=== PATIENT | male | born 1950 | race Caucasian/White ===

== ENCOUNTER 2017-06-02 05:36 | Outpatient (CLI) | payer MEDICARE ==
[~2017-06-02] VITALS: Ht 180.3 cm; Wt 98.4 kg
[~2017-06-02 05:36] MED LIST: ALBU8.5H2 IH; HYDR-34 PO; LISI10TA PO
[2017-06-02] MEDS ORDERED: RT-ALBUINH IH (12:27)
[2017-06-02] MEDS ORDERED: OMEP20TA7 PO (12:27)
[2017-06-02] MEDS ORDERED: LISI10TA2 PO (12:27)
== END 2017-06-02 12:35 ==
LOC: PREOP 05:36
PROVIDERS: ATTEND Surgery
DX: Z01.818 Encounter for other preprocedural examination (principal); Z12.11 Encounter for screening for malignant neoplasm of colon

== ENCOUNTER 2017-06-09 07:15 | Day surgery (SDC) | payer MEDICARE ==
[~2017-06-09] VITALS: Ht 180.3 cm; Wt 98.4 kg
[~2017-06-09 07:15] MED LIST changes: +LISI10TA2 PO; +OMEP20TA7 PO; +RT-ALBUINH IH
[2017-06-09] MEDS ORDERED: MIDAZOLAM 2 MG/2 ML (VERSED) VIAL ONE (07:21)
[2017-06-09] MEDS ORDERED: PROPOFOL INJECTION 50 ML IV ONE (07:21)
[2017-06-09] MEDS ORDERED: NS IV 500 ML 500 ML ONE (07:28)
[2017-06-09] MEDS ORDERED: NS IV 500 ML 500 ML IV PRN (07:38)
[2017-06-09] MEDS ORDERED: NS IV 500 ML 500 ML IV SCH (07:45)
[2017-06-09] MEDS ORDERED: MIDAZOLAM 2 MG/2 ML (VERSED) VIAL IV PRN (07:45)
[2017-06-09] MEDS ORDERED: NALOXONE 0.4 MG/ML 1 ML (NARCAN) VIAL IV PRN (07:45)
[2017-06-09] MEDS ORDERED: fentaNYL INJECTION 100 MCG/2 ML AMP IV PRN (07:45)
[2017-06-09] MEDS ORDERED: HURRICAINE EXT TUBE (BENZOCAINE) XX PRN ×2 (07:45)
[2017-06-09] MEDS ORDERED: LIDOCAINE JELLY 2% (XYLOCAINE) 5 ML TUBE TOP PRN (07:45)
[2017-06-09] MEDS ORDERED: FLUMAZENIL (ROMAZICON) 0.1 MG/ML 5 ML VIAL IV PRN (07:45)
[2017-06-09 07:51] VITALS: BP 146/88
[2017-06-09] MEDS ORDERED: HURRICAINE EXT TUBE (BENZOCAINE) ONE (08:12)
[2017-06-09] MEDS ORDERED: proPOfol 200 MG/20 ML (DIPRIVAN) VIAL IV ONE (08:43)
--- NOTE | 2017-06-09 09:15 | Progress Note-Pre Operative ---
Pre-Operative Progress Note H&P Reviewed The H&P was reviewed, patient examined and no changes noted. Date Seen by Provider: Jun 09, 2017 Time Seen by Provider: 08:10 Date H&P Reviewed: Jun 09, 2017 Time H&P Reviewed: 08:10 Pre-Operative Diagnosis: gerd, family hx colon cancer, hx polyps JESSICA NICOLAS DO Jun 09, 2017 09:15
--- NOTE | 2017-06-09 09:19 | Progress Note-Post Operative ---
Post-Operative Progess Note Surgeon (s)/Paraprofessional Aide Teacher (s) Surgeon JESSICA NICOLAS DO Paraprofessional Aide Teacher: na Pre-Operative Diagnosis gerd, family hx colon cancer, hx polyps Post-Operative Diagnosis hiatal hernia, reflux esophagitis, sigmoid polyp, diverticulosis, internal hemorrhoids Procedure & Operative Findings Date of Procedure 06/09/17 Procedure Performed/Findings egd c biopsies, colonoscopy wiht hot bx polypectomy Anesthesia Type per icebox man Estimated Blood Loss Estimated blood loss (mL): none Specimens/Packing Specimens Removed antrum, ge, sigmoid polyp JESSICA NICOLAS DO Jun 09, 2017 09:19
[2017-06-09 09:30] VITALS: BP 126/79
[2017-06-09 10:00] VITALS: BP 128/86
--- NOTE | 2017-06-09 10:15 | Discharge Inst-Simple/Standard ---
Discharge Inst-Standard Patient Instructions/Follow Up Plan of Care/Instructions/FU: 2 weeks Yanelis Activity as Tolerated: Yes Discharge Diet: Regular Diet JESSICA NICOLAS DO Jun 09, 2017 10:15
[2017-06-09 10:20] VITALS: BP 128/86
--- NOTE | 2017-06-09 13:27 | OPERATIVE REPORT ---
DATE OF SERVICE: 06/09/2017 PREOPERATIVE DIAGNOSES: Gastroesophageal reflux disease, family history of colon cancer, history of polyps. POSTOPERATIVE DIAGNOSES: Hiatal hernia, reflux esophagitis, sigmoid polyp, diverticulosis, internal hemorrhoids. PROCEDURE: EGD with biopsy, colonoscopy with hot biopsy polypectomy. SURGEON: Jessica Hilario DO. ANESTHESIA: Per CORPORATE TRAVEL AGENT. ESTIMATED BLOOD LOSS: None. COMPLICATIONS: None. INDICATIONS: The patient is a 66-year-old male with family history of colon cancer and history of polyps. He also has gastroesophageal reflux disease. The patient understands risks and benefits of procedure and wished to proceed with the procedure. Consent was signed on the chart. DESCRIPTION OF PROCEDURE: The patient was taken to the endoscopy suite, placed in left lateral recumbent position. Timeout was performed. Scope was inserted in the mouth, down the esophagus, stomach and into the duodenum without difficulty. The duodenum had no polyps, masses or ulcerations. The scope was slowly retracted back into the stomach which was further insufflated. A biopsy of the antrum was obtained. There are some small gastric polyps within the stomach all with benign appearance. Scope was retroflexed noting a moderate sized hiatal hernia. Scope was then returned to its normal position, slowly withdrawn in the distal esophagus. Some evidence of some reflux esophagitis or possibly early Sarmiento's was present. Couple biopsies were obtained of this area. Scope was then slowly retracted back noting no other pathology to completely remove. Digital rectal exam was performed. There were no palpable polyps, masses or ulcerations. The scope was inserted in the rectum advanced all the way to the cecum with minimal difficulty. Prep was adequate. Scope was then slowly retracted back. There were no polyps, masses or ulcerations in the cecum, ascending, transverse and descending colon. Within the sigmoid colon, a small polyp was present, which hot biopsy polypectomy was performed. There was also a minimal amount of diverticulosis present. Scope was continued to be slowly retracted to the rectum where it was also retroflexed noting some internal hemorrhoids. Scope was returned to its normal position, slowly withdrawn until completely removed noting no other pathology. The patient tolerated the procedure well without any complications. He was taken to recovery room in stable condition. RECOMMENDATIONS: The patient will continue current medications. We will await biopsy results and discuss pathology. The patient will need repeat colonoscopy in 5 years. If he has any problems prior to that, he should be reevaluated at that time. We consider changing medications for reflux, but we will see how he is doing and biopsy results. Job ID: [id number] DocumentID: [id number] Dictated Date: 06/09/2017 09:19:10 Air Quality Manager Date: 06/09/2017 13:26:18 Dictated By: JESSICA HILARIO DO
== END 2017-06-09 10:20 | disposition home or self-care (01) ==
LOC: ENDO 07:15
PROVIDERS: ATTEND Surgery
DX: Z12.11 Encounter for screening for malignant neoplasm of colon (principal); D12.5 Benign neoplasm of sigmoid colon; K57.30 Diverticulosis of large intestine without perforation or abscess without bleeding; K64.8 Other hemorrhoids; K22.70 Barrett's esophagus without dysplasia; K21.0 Gastro-esophageal reflux disease with esophagitis; K44.9 Diaphragmatic hernia without obstruction or gangrene; Z80.0 Family history of malignant neoplasm of digestive organs; Z86.010 Personal history of colon polyps; I10 Essential (primary) hypertension; J45.909 Unspecified asthma, uncomplicated; Z79.899 Other long term (current) drug therapy
CPT/HCPCS: 88305

== ENCOUNTER 2018-08-02 10:30 | Outpatient (CLI) | payer MEDICARE ==
[~2018-08-02] VITALS: Ht 180.3 cm; Wt 98.4 kg
== END 2018-08-02 11:00 | disposition home or self-care (01) ==
LOC: PREOP 10:30
PROVIDERS: ATTEND Surgery
DX: Z01.818 Encounter for other preprocedural examination (principal)

== ENCOUNTER 2018-08-03 06:59 | Day surgery (SDC) | payer MEDICARE, OTHER ==
[~2018-08-03] VITALS: Ht 180.3 cm; Wt 98.4 kg
[~2018-08-03 06:59] MED LIST changes: +LACTATED RINGERS 1,000 ML IV ONE
--- OUTSIDE RECORDS SUMMARY | 2018-08-03 07:02 | XMS REPORT | Continuity of Care Document ---
Author Organization Unknown Address Unknown Allergies Active Description Code Type Severity Reaction Onset Reported/Identified Relationship to Patient Clinical Status Yes No Known Drug Allergies [id number] Drug Allergy Unknown N/A 06/03/2010 Yes Penicillins [id number] Drug Allergy Unknown ANAPHYLAXIS 06/02/2017 Medications There is no data. Problems Date Dx Coded Attending Type Code Diagnosis Diagnosed By 06/02/2017 JESSICA NICOLAS DO Ot Z01.818 ENCOUNTER FOR OTHER PREPROCEDURAL EXAMIN 06/02/2017 JESSICA NICOLAS DO Ot Z12.11 ENCOUNTER FOR SCREENING FOR MALIGNANT NE 06/03/2017 JESSICA NICOLAS DO Ot Z01.818 ENCOUNTER FOR OTHER PREPROCEDURAL EXAMIN 06/03/2017 JESSICA NICOLAS DO Ot Z12.11 ENCOUNTER FOR SCREENING FOR MALIGNANT NE 06/09/2017 JESSICA NICOLAS DO Ot D12.5 BENIGN NEOPLASM OF SIGMOID COLON 06/09/2017 JESSICA NICOLAS DO Ot I10 ESSENTIAL (PRIMARY) HYPERTENSION 06/09/2017 JESSICA NICOLAS DO Ot J45.909 UNSPECIFIED ASTHMA, UNCOMPLICATED 06/09/2017 JESSICA NICOLAS DO Ot K21.0 GASTRO-ESOPHAGEAL REFLUX DISEASE WITH ES 06/09/2017 JESSICA NICOLAS DO Ot 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 06/09/2017 JESSICA NICOLAS DO Ot K44.9 DIAPHRAGMATIC HERNIA WITHOUT OBSTRUCTION 06/09/2017 JESSICA NICOLAS DO Ot K57.30 DVRTCLOS OF LG 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 06/09/2017 JESSICA NICOLAS DO Ot K63.5 POLYP OF COLON 06/09/2017 JESSICA NICOLAS DO Ot K64.8 OTHER HEMORRHOIDS 06/09/2017 JESSICA NICOLAS DO Ot Z12.11 ENCOUNTER FOR SCREENING FOR MALIGNANT NE 06/09/2017 JESSICA NICOLAS DO Ot Z79.899 OTHER INTERMEDIATE (CURRENT) DRUG THERAPY 06/09/2017 JESSICA NICOLAS DO Ot Z80.0 FAMILY HISTORY OF MALIGNANT NEOPLASM OF 06/09/2017 JESSICA NICOLAS DO Ot Z86.010 PERSONAL HISTORY OF COLONIC POLYPS 06/12/2017 JESSICA NICOLAS DO Ot D12.5 BENIGN NEOPLASM OF SIGMOID COLON 06/12/2017 JESSICA NICOLAS DO Ot I10 ESSENTIAL (PRIMARY) HYPERTENSION 06/12/2017 JESSICA NICOLAS DO Ot J45.909 UNSPECIFIED ASTHMA, UNCOMPLICATED 06/12/2017 JESSICA NICOLAS DO Ot K21.0 GASTRO-ESOPHAGEAL REFLUX DISEASE WITH ES 06/12/2017 JESSICA NICOLAS DO Ot 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 06/12/2017 JESSICA NICOLAS DO Ot K44.9 DIAPHRAGMATIC HERNIA WITHOUT OBSTRUCTION 06/12/2017 JESSICA NICOLAS DO Ot K57.30 DVRTCLOS OF LG 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 06/12/2017 JESSICA NICOLAS DO Ot K64.8 OTHER HEMORRHOIDS 06/12/2017 JESSICA NICOLAS DO Ot Z12.11 ENCOUNTER FOR SCREENING FOR MALIGNANT NE 06/12/2017 JESSICA NICOLAS DO Ot Z79.899 OTHER LINK TRAINER MAINTENANCE WORKER (CURRENT) DRUG THERAPY 06/12/2017 JESSICA NICOLAS DO Ot Z80.0 FAMILY HISTORY OF MALIGNANT NEOPLASM OF 06/12/2017 JESSICA NICOLAS DO Ot Z86.010 PERSONAL HISTORY OF COLONIC POLYPS 06/19/2017 JESSICA NICOLAS DO Ot D12.5 BENIGN NEOPLASM OF SIGMOID COLON 06/19/2017 JESSICA NICOLAS DO Ot I10 ESSENTIAL (PRIMARY) HYPERTENSION 06/19/2017 JESSICA NICOLAS DO Ot J45.909 UNSPECIFIED ASTHMA, UNCOMPLICATED 06/19/2017 JESSICA NICOLAS DO Ot K21.0 GASTRO-ESOPHAGEAL REFLUX DISEASE WITH ES 06/19/2017 JESSICA NICOLAS DO Ot 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 06/19/2017 JESSICA NICOLAS DO Ot K44.9 DIAPHRAGMATIC HERNIA WITHOUT OBSTRUCTION 06/19/2017 JESSICA NICOLAS DO Ot K57.30 DVRTCLOS OF LG 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 06/19/2017 JESSICA NICOLAS DO Ot K64.8 OTHER HEMORRHOIDS 06/19/2017 JESSICA NICOLAS DO Ot Z12.11 ENCOUNTER FOR SCREENING FOR MALIGNANT NE 06/19/2017 JESSICA NICOLAS DO Ot Z79.899 OTHER INTERMEDIATE (CURRENT) DRUG THERAPY 06/19/2017 JESSICA NICOLAS DO Ot Z80.0 FAMILY HISTORY OF MALIGNANT NEOPLASM OF 06/19/2017 JESSICA NICOLAS DO Ot Z86.010 PERSONAL HISTORY OF COLONIC POLYPS 06/20/2017 JESSICA NICOLAS DO Ot D12.5 BENIGN NEOPLASM OF SIGMOID COLON 06/20/2017 JESSICA NICOLAS DO Ot I10 ESSENTIAL (PRIMARY) HYPERTENSION 06/20/2017 JESSICA NICOLAS DO Ot J45.909 UNSPECIFIED ASTHMA, UNCOMPLICATED 06/20/2017 JESSICA NICOLAS DO Ot K21.0 GASTRO-ESOPHAGEAL REFLUX DISEASE WITH ES 06/20/2017 JESSICA NICOLAS DO Ot 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 06/20/2017 JESSICA NICOLAS DO Ot K44.9 DIAPHRAGMATIC HERNIA WITHOUT OBSTRUCTION 06/20/2017 JESSICA NICOLAS DO Ot K57.30 DVRTCLOS OF LG 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 06/20/2017 JESSICA NICOLAS DO Ot K64.8 OTHER HEMORRHOIDS 06/20/2017 JESSICA NICOLAS DO Ot Z12.11 ENCOUNTER FOR SCREENING FOR MALIGNANT NE 06/20/2017 JESSICA NICOLAS DO Ot Z79.899 OTHER INTERMEDIATE (CURRENT) DRUG THERAPY 06/20/2017 JESSICA NICOLAS DO Ot Z80.0 FAMILY HISTORY OF MALIGNANT NEOPLASM OF 06/20/2017 JESSICA NICOLAS DO Ot Z86.010 PERSONAL HISTORY OF COLONIC POLYPS 07/28/2018 JESSICA NICOLAS DO Ot Z01.818 ENCOUNTER FOR OTHER PREPROCEDURAL EXAMIN 07/30/2018 JESSICA NICOLAS DO Ot Z01.818 ENCOUNTER FOR OTHER PREPROCEDURAL EXAMIN 08/02/2018 JESSICA NICOLAS DO Ot Z01.818 ENCOUNTER FOR OTHER PREPROCEDURAL EXAMIN Procedures There is no data. Results There is no data. Encounters ACCT No. Visit Date/Time Discharge Status Pt. Type Provider Facility Loc./Unit Complaint [id number] 06/09/2018 09:00:00 06/09/2018 23:59:59 CLS Outpatient [facility] [id number] 08/02/2018 10:30:00 08/02/2018 11:00:00 DIS Outpatient JESSICA NICOLAS DO [facility] PREOP COLONOSCOPY/EGD [id number] 06/09/2017 07:15:00 06/09/2017 10:20:00 DIS Outpatient JESSICA NICOLAS DO [facility] ENDO SCREENING [id number] 06/02/2017 05:36:00 06/02/2017 12:35:00 DIS Outpatient JESSICA NICOLAS DO [facility] PREOP COLONOSCOPY [id number] 08/03/2018 08:00:00 PEN Preadmit JESSICA NICOLAS DO [facility] ENDO HX COLON POLYPS/FAMILY HX COLON CA/HX MCINTOSH'S
[2018-08-03] MEDS ORDERED: PROPOFOL INJECTION 50 ML IV ONE ×2 (07:13→08:17)
[2018-08-03] MEDS ORDERED: MIDAZOLAM 2 MG/2 ML (VERSED) VIAL ONE (07:13)
[2018-08-03] MEDS ORDERED: LACTATED RINGERS 1,000 ML IV STA (07:37)
[2018-08-03] MEDS ORDERED: HURRICAINE EXT TUBE (BENZOCAINE) ONE (07:39)
[2018-08-03 07:42] VITALS: BP 140/81
[2018-08-03] MEDS ORDERED: HURRICAINE EXT TUBE (BENZOCAINE) XX PRN (07:45)
--- NOTE | 2018-08-03 08:46 | Progress Note-Post Operative ---
Post-Operative Progess Note Surgeon (s)/Manager Army (s) Surgeon JESSICA NICOLAS DO Manager Army: na Pre-Operative Diagnosis gerd, family hx colon cancer, hx polyps Post-Operative Diagnosis hiatal hernia, gastric polyps, lira's esophagus, diverticulosis Procedure & Operative Findings Date of Procedure 08/03/18 Procedure Performed/Findings egd c biopsies, colonoscopy Anesthesia Type per veterinary practitioner Estimated Blood Loss Estimated blood loss (mL): scant Specimens/Packing Specimens Removed antrum, ge JESSICA NICOLAS DO Aug 03, 2018 08:46
--- NOTE | 2018-08-03 08:47 | Discharge Inst-Simple/Standard ---
Discharge Inst-Standard Patient Instructions/Follow Up Plan of Care/Instructions/FU: 2 weeks kayleigh Activity as Tolerated: Yes Discharge Diet: Regular Diet JESSICA NICOLAS DO Aug 03, 2018 08:47
[2018-08-03 08:50] VITALS: BP 102/60
[2018-08-03 09:03] VITALS: BP 103/79
[2018-08-03 09:34] VITALS: BP 102/60
[2018-08-03 09:35] VITALS: BP 103/79
--- NOTE | 2018-08-03 13:59 | Anesthesia-General Post-Op ---
MAC Patient Condition Mental Status/LOC: Same as Preop Cardiovascular: Satisfactory Nausea/Vomiting: Absent Respiratory: Satisfactory Pain: Controlled Complications: Absent Post Op Complications Complications None Follow Up Care/Instructions Patient Instructions None needed. Anesthesiology Discharge Order Discharge Order Patient was seen this morning after the procedure and he was doing well, no complaints, stable vital signs, no apparent adverse anesthesia problems. NII GUNTER DO Aug 03, 2018 13:59
--- NOTE | 2018-08-03 14:43 | OPERATIVE REPORT ---
DATE OF SERVICE: 08/03/2018 PREOPERATIVE DIAGNOSES: Gastroesophageal reflux disease, family history of colon cancer, history of polyps, and history of Sarmiento's. POSTOPERATIVE DIAGNOSES: Hiatal hernia, gastric polyps, Sarmiento esophagus, and diverticulosis. PROCEDURE PERFORMED: Esophagogastroduodenoscopy with biopsies and colonoscopy. SURGEON: Jessica Hilario DO. ANESTHESIA: Per DELI MANAGER. ESTIMATED BLOOD LOSS: Scant. COMPLICATIONS: None. 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 He understands risks and benefits of procedure and wished to proceed with procedure. Consent was signed in the chart. DESCRIPTION OF PROCEDURE: The patient was taken to the endoscopy suite, placed in left lateral recumbent position. Timeout was performed. Scope was inserted in mouth, down the esophagus, stomach and into the duodenum without difficulty. There were no polyps, masses or ulcerations within the duodenum. Scope was then slowly retracted back into the stomach where it was further insufflated. Multiple gastric polyps of benign appearing were present. Biopsy of the antrum was obtained. Scope was retroflexed noting a moderate sized hiatal hernia. No other pathology was noted. Scope was returned to its normal position, slowly withdrawn to the distal esophagus. Samriento's short segment present at the GE junction. Multiple biopsies were obtained. Scope was then slowly retracted back noting no other pathology. Digital rectal exam was performed. There were no palpable polyps, masses or ulcerations. Scope was inserted in the rectum, advanced all the way to the cecum with minimal difficulty. Prep was adequate. Scope was then slowly retracted back. There were no polyps, mass or ulceration of the cecum, ascending, transverse and descending colon. Once in the sigmoid colon, a moderate amount of diverticulosis is present. Scope was continued to be slowly retracted back noting no other pathology. Once in the rectum, scope was retroflexed noting no other pathology. Scope was returned to its normal position, slowly withdrawn until completely removed. The patient tolerated procedure well without any complications. RECOMMENDATIONS: Continue on current medical regimen. We will repeat EGD in 2-3 years. Repeat colonoscopy in 5 years. Any issues before that be seen at that time. Job ID: [id number] DocumentID: [id number] Dictated Date: 08/03/2018 08:49:45 Hook Up Driver Date: 08/03/2018 14:42:21 Dictated By: JESSICA HILARIO DO
== END 2018-08-03 09:30 | disposition home or self-care (01) ==
LOC: ENDO 06:59
PROVIDERS: ATTEND Surgery
DX: K22.70 Barrett's esophagus without dysplasia (principal); K44.9 Diaphragmatic hernia without obstruction or gangrene; K31.7 Polyp of stomach and duodenum; K29.50 Unspecified chronic gastritis without bleeding; K21.0 Gastro-esophageal reflux disease with esophagitis; K57.30 Diverticulosis of large intestine without perforation or abscess without bleeding; I10 Essential (primary) hypertension; J45.909 Unspecified asthma, uncomplicated; Z86.010 Personal history of colon polyps; Z80.0 Family history of malignant neoplasm of digestive organs; Z88.0 Allergy status to penicillin; Z79.899 Other long term (current) drug therapy

== ENCOUNTER 2019-07-09 13:02 | Emergency (ER) | payer MEDICARE, OTHER ==
[~2019-07-09] VITALS: Ht 177 cm; Wt 99.0 kg
[~2019-07-09 13:02] MED LIST changes: -LACTATED RINGERS 1,000 ML IV ONE
--- OUTSIDE RECORDS SUMMARY | 2019-07-09 13:08 | XMS REPORT ---
Author Author [facility] Address [address] [place] [address] Care Team Providers Care Mounter Sousaphones Name Role Phone SHALONDA PEREZ Unavailable PROBLEMS Type Condition ICD9-CM Code UZH07-IR Code Onset Dates Condition S tatus SNOMED Code Problem Seasonal allergies J30.2 Active 4 [id number] Problem Essential hypertension I10 Active 40400997 Problem History of colon polyps Z86.010 Active 624911205 Problem Mild intermittent asthma without complication J45. 20 Active 914052119 Problem Gastroesophageal reflux disease without esophagitis K21.9 Active 022337528 ALLERGIES Substance Reaction Event Type Date Status PCN Unknown Non Drug Allergy Apr, Active ENCOUNTERS Encounter Location Date Diagnosis [place] [address] [address] Feb, Essential hypertension I10 [facility] [address] [address] Feb, Essential hypertension I10 [place] [address] [address] Jan, Mild intermittent asthma without complication J45.20 [facility] [address] [address] Dec, Mild intermittent asthma without complic ation J45.20 [facility] [address] [address] Sep, Seasonal allergies J30.2 ; Moderate intermittent asthma with acute exacerbation J45.21 ; Essential hypertension I10 and Gastroesophageal reflux disease without esophagitis K21.9 [facility] [address] [address] Aug, Mild intermittent asthma without complication J45.20 [facility] [address] [address] May, Environmental and seasonal allergies J30.89 [facility] [address] [id number] [place] [address] Apr, [facility] [address] [id number] [place] [address] Apr, Essential hypertension I10 ; Seasonal allergies J30.2 ; Gastroesophageal reflux disease without esophagitis K21.9 ; History of colon polyps Z86.010 ; Mild intermittent asthma without complication J45.20 ; Urinary frequency R35.0 and Annual physical exam Z00.00 IMMUNIZATIONS No Known Immunizations SOCIAL HISTORY Never Assessed REASON FOR VISIT yearly checkup--carson lopez PLAN OF CARE Activity Details Follow Up 6 Months Reason:routine VITAL SIGNS Height 71 in 2018-05-11 Weight 223 lbs 2018-05-11 Temperature 97.6 degrees Fahrenheit 2018-05-11 Heart Rate 86 bpm 2018-05-11 Respiratory Rate 18 2018-05-11 BMI 31.1 kg/m2 2018-05-11 Blood pressure systolic 158 mmHg 2018-05-11 Blood pressure diastolic 74 mmHg 2018-05-11 MEDICATIONS Medication Instructions Dosage Frequency Start Date End Date Duration S tatus Ventolin HFA 108 (90 Base) MCG/ACT Inhalation every 6 hrs 2 puffs a s needed 6h 30 days Active Pantoprazole Sodium 40 MG Orally Once a day 1 tablet 24h 90 days Active Cetirizine-Pseudoephedrine ER 5-120 MG Orally Once a day 1 tablet a s needed 24h 90 days Active Lisinopril 10 MG Orally Once a day 1 tablet 24h 90 d ays Active RESULTS No Results PROCEDURES Procedure Date Ordered Result Body Site [facility] VISIT ESTABLISHED PATIENT May 11, 2018 [facility] VISIT NEW PATIENT May 11, 2018 INSTRUCTIONS MEDICATIONS ADMINISTERED No Known Medications MEDICAL (GENERAL) HISTORY Type Description Date Medical History Asthma Medical History HTN Surgical History foot surgery on left foot 2004 Surgical History Colonoscopy 06/2017
--- OUTSIDE RECORDS SUMMARY | 2019-07-09 13:08 | XMS REPORT | Continuity of Care Document ---
Author Organization Unknown Address Unknown Phone Unavailable Allergies Active Description Code Type Severity Reaction Onset Reported/Identified Relationship to Patient Clinical Status Yes No Known Drug Allergies [id number] Drug Allergy Unknown N/A 06/03/2010 Yes Penicillins [id number] Drug Aller gy Unknown ANAPHYLAXIS 06/02/2017 Medications There is no data. Problems Date Dx Coded Attending Type Code Diagnosis Diagnosed By 06/02/2017 JESSICA NICOLAS DO Ot Z01.818 ENCOUNTER FOR OTHER PREPROCEDURAL EXAMIN 06/02/2017 JESSICA NICOLAS DO Ot Z12. 11 ENCOUNTER FOR SCREENING FOR MALIGNANT NE 06/03/2017 JESSICA NICOLAS DO Ot Z01.818 ENCOUNTER FOR OTHER PREPROCEDURAL EXAMIN 06/03/2017 JESSICA NICOLAS DO Ot Z12. 11 ENCOUNTER FOR SCREENING FOR MALIGNANT NE 06/09/2017 JESSICA NICOLAS DO Ot D12. 5 BENIGN NEOPLASM OF SIGMOID COLON 06/09/2017 JESSICA NICOLAS DO Ot I10 ESSENTIAL (PRIMARY) HYPERTENSION 06/09/2017 JESSICA NICOLAS DO Ot J45.909 UNSPECIFIED ASTHMA, UNCOMPLICATED 06/09/2017 JESSICA NICOLAS DO Ot K21. 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 9 DIAPHRAGMATIC HERNIA WITHOUT OBSTRUCTION 06/09/2017 JESSICA NICOLAS DO Ot K57. 30 DVRTCLOS OF LG 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 06/09/2017 JESSICA NICOLAS DO Ot K63. 5 POLYP OF COLON 06/09/2017 JESSICA NICOLAS DO Ot K64. 8 OTHER HEMORRHOIDS 06/09/2017 JESSICA NICOLAS DO Ot Z12. 11 ENCOUNTER FOR SCREENING FOR MALIGNANT NE 06/09/2017 JESSICA NICOLAS DO Ot Z79.899 OTHER RESOURCING CONSULTANT (CURRENT) DRUG THERAPY 06/09/2017 JESSICA NICOLAS DO Ot Z80. 0 FAMILY HISTORY OF MALIGNANT NEOPLASM OF 06/09/2017 JESSICA NICOLAS DO Ot Z86.010 PERSONAL HISTORY OF COLONIC POLYPS 06/12/2017 JESSICA NICOLAS DO Ot D12. 5 BENIGN NEOPLASM OF SIGMOID COLON 06/12/2017 JESSICA NICOLAS DO Ot I10 ESSENTIAL (PRIMARY) HYPERTENSION 06/12/2017 JESSICA NICOLAS DO Ot J45.909 UNSPECIFIED ASTHMA, UNCOMPLICATED 06/12/2017 JESSICA NICOLAS DO Ot K21. 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 9 DIAPHRAGMATIC HERNIA WITHOUT OBSTRUCTION 06/12/2017 JESSICA NICOLAS DO Ot K57. 30 DVRTCLOS OF LG 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 06/12/2017 JESSICA NICOLAS DO Ot K64. 8 OTHER HEMORRHOIDS 06/12/2017 JESSICA NICOLAS DO Ot Z12. 11 ENCOUNTER FOR SCREENING FOR MALIGNANT NE 06/12/2017 JESSICA NICOLAS DO Ot Z79.899 OTHER RESOURCING CONSULTANT (CURRENT) DRUG THERAPY 06/12/2017 JESSICA NICOLAS DO Ot Z80. 0 FAMILY HISTORY OF MALIGNANT NEOPLASM OF 06/12/2017 JESSICA NICOLAS DO Ot Z86.010 PERSONAL HISTORY OF COLONIC POLYPS 06/19/2017 JESSICA NICOLAS DO Ot D12. 5 BENIGN NEOPLASM OF SIGMOID COLON 06/19/2017 JESSICA NICOLAS DO Ot I10 ESSENTIAL (PRIMARY) HYPERTENSION 06/19/2017 JESSICA NICOLAS DO Ot J45.909 UNSPECIFIED ASTHMA, UNCOMPLICATED 06/19/2017 JESSICA NICOLAS DO Ot K21. 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 9 DIAPHRAGMATIC HERNIA WITHOUT OBSTRUCTION 06/19/2017 JESSICA NICOLAS DO Ot K57. 30 DVRTCLOS OF LG 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 06/19/2017 JESSICA NICOLAS DO Ot K64. 8 OTHER HEMORRHOIDS 06/19/2017 JESSICA NICOLAS DO Ot Z12. 11 ENCOUNTER FOR SCREENING FOR MALIGNANT NE 06/19/2017 JESSICA NICOLAS DO Ot Z79.899 OTHER RESOURCING CONSULTANT (CURRENT) DRUG THERAPY 06/19/2017 JESSICA NICOLAS DO Ot Z80. 0 FAMILY HISTORY OF MALIGNANT NEOPLASM OF 06/19/2017 JESSICA NICOLAS DO Ot Z86.010 PERSONAL HISTORY OF COLONIC POLYPS 06/20/2017 JESSICA NICOLAS DO Ot D12. 5 BENIGN NEOPLASM OF SIGMOID COLON 06/20/2017 JESSICA NICOLAS DO Ot I10 ESSENTIAL (PRIMARY) HYPERTENSION 06/20/2017 JESSICA NICOLAS DO Ot J45.909 UNSPECIFIED ASTHMA, UNCOMPLICATED 06/20/2017 JESSICA NICOLAS DO Ot K21. 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 9 DIAPHRAGMATIC HERNIA WITHOUT OBSTRUCTION 06/20/2017 JESSICA NICOLAS DO Ot K57. 30 DVRTCLOS OF LG 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 06/20/2017 JESSICA NICOLAS DO Ot K64. 8 OTHER HEMORRHOIDS 06/20/2017 JESSICA NICOLAS DO Ot Z12. 11 ENCOUNTER FOR SCREENING FOR MALIGNANT NE 06/20/2017 JESSICA NICOLAS DO Ot Z79.899 OTHER SKILLED NURSING (CURRENT) DRUG THERAPY 06/20/2017 JESSICA NICOLAS DO Ot Z80. 0 FAMILY HISTORY OF MALIGNANT NEOPLASM OF 06/20/2017 JESSICA NICOLAS DO Ot Z86.010 PERSONAL HISTORY OF COLONIC POLYPS 07/28/2018 JESSICA NICOLAS DO Ot Z01.818 ENCOUNTER FOR OTHER PREPROCEDURAL EXAMIN 07/30/2018 JESSICA NICOLAS DO Ot Z01.818 ENCOUNTER FOR OTHER PREPROCEDURAL EXAMIN 08/02/2018 JESSICA NICOLAS DO Ot Z01.818 ENCOUNTER FOR OTHER PREPROCEDURAL EXAMIN 08/02/2018 JESSICA NICOLAS DO Ot Z01.818 ENCOUNTER FOR OTHER PREPROCEDURAL EXAMIN 08/03/2018 JESSICA NICOLAS DO Ot I10 ESSENTIAL (PRIMARY) HYPERTENSION 08/03/2018 JESSICA NICOLAS DO Ot J45.909 UNSPECIFIED ASTHMA, UNCOMPLICATED 08/03/2018 JESSICA NICOLAS DO Ot K21. 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 50 UNSPECIFIED CHRONIC GASTRITIS WITHOUT BL 08/03/2018 JESSICA NICOLAS DO Ot K31. 7 POLYP OF STOMACH AND DUODENUM 08/03/2018 JESSICA NICOLAS DO Ot K44. 9 DIAPHRAGMATIC HERNIA WITHOUT OBSTRUCTION 08/03/2018 JESSICA NICOLAS DO Ot K57. 30 DVRTCLOS OF LG 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 08/03/2018 JESSICA NICOLAS DO Ot Z79.899 OTHER SKILLED NURSING (CURRENT) DRUG THERAPY 08/03/2018 JESSICA NICOLAS DO Ot Z80. 0 FAMILY HISTORY OF MALIGNANT NEOPLASM OF 08/03/2018 JESSICA NICOLAS DO Ot Z86.010 PERSONAL HISTORY OF COLONIC POLYPS 08/03/2018 JESSICA NICOLAS DO Ot Z88. 0 ALLERGY STATUS TO PENICILLIN 08/06/2018 JESSICA NICOLAS DO Ot I10 ESSENTIAL (PRIMARY) HYPERTENSION 08/06/2018 JESSICA NICOLAS DO Ot J45.909 UNSPECIFIED ASTHMA, UNCOMPLICATED 08/06/2018 JESSICA NICOLAS DO Ot K21. 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 50 UNSPECIFIED CHRONIC GASTRITIS WITHOUT BL 08/06/2018 JESSICA NICOLAS DO Ot K31. 7 POLYP OF STOMACH AND DUODENUM 08/06/2018 JESSICA NICOLAS DO Ot K44. 9 DIAPHRAGMATIC HERNIA WITHOUT OBSTRUCTION 08/06/2018 JESSICA NIOCLAS DO Ot K57. 30 DVRTCLOS OF LG 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 08/06/2018 JESSICA NICOLAS DO Ot Z79.899 OTHER SKILLED NURSING (CURRENT) DRUG THERAPY 08/06/2018 JESSICA NICOLAS DO Ot Z80. 0 FAMILY HISTORY OF MALIGNANT NEOPLASM OF 08/06/2018 JESSICA NICOLAS DO Ot Z86.010 PERSONAL HISTORY OF COLONIC POLYPS 08/06/2018 JESSICA NICOLAS DO Ot Z88. 0 ALLERGY STATUS TO PENICILLIN 08/06/2018 JESSICA NICOLAS DO Ot I10 ESSENTIAL (PRIMARY) HYPERTENSION 08/06/2018 JESSICA NICOLAS DO Ot J45.909 UNSPECIFIED ASTHMA, UNCOMPLICATED 08/06/2018 JESSICA NICOLAS DO Ot K21. 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 50 UNSPECIFIED CHRONIC GASTRITIS WITHOUT BL 08/06/2018 JESSICA NICOALS DO Ot K31. 7 POLYP OF STOMACH AND DUODENUM 08/06/2018 JESSICA NICOLAS DO Ot K44. 9 DIAPHRAGMATIC HERNIA WITHOUT OBSTRUCTION 08/06/2018 JESSICA NICOLAS DO Ot K57. 30 DVRTCLOS OF LG 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 08/06/2018 JESSICA NICOLAS DO Ot Z79.899 OTHER SKILLED NURSING (CURRENT) DRUG THERAPY 08/06/2018 JESSICA NICOLAS DO Ot Z80. 0 FAMILY HISTORY OF MALIGNANT NEOPLASM OF 08/06/2018 JESSICA NICOLAS DO Ot Z86.010 PERSONAL HISTORY OF COLONIC POLYPS 08/06/2018 JESSICA NICOLAS DO Ot Z88. 0 ALLERGY STATUS TO PENICILLIN 08/08/2018 JESSICA NICOLAS DO Ot Z01.818 ENCOUNTER FOR OTHER PREPROCEDURAL EXAMIN Procedures There is no data. Results There is no data. Encounters ACCT No. Visit Date/Time Discharge Status Pt. Type Provider Facility Loc./Unit Complaint [id number] 05/30/2019 15:40:00 05/30/2019 23:59: 59 CLS Outpatient [facility] [id number] 08/03/2018 06:59:00 019 09:30:00 DIS Outpatient JESSICA NICOLAS DO [facility] ENDO HX COLON POLYPS/FAMILY HX COLON CA/HX MCINTOSH'S [id number] 08/02/2018 10:30:00 019 11:00:00 DIS Outpatient JESSICA NICOLAS DO [facility] PREOP COLONOSCOPY/EGD [id number] 06/09/2017 07:15:00 018 10:20:00 DIS Outpatient JESSICA NICOLAS DO [facility] ENDO SCREENING [id number] 06/02/2017 05:36:00 018 12:35:00 DIS Outpatient JESSICA NICOLAS DO [facility] PREOP COLONOSCOPY
[2019-07-09] MEDS ORDERED: ASPIRIN 81 MG CHEW (CHILDREN'S ASA) PO ONE (13:30)
--- NOTE | 2019-07-09 13:42 | ED Chest Pain ---
General Chief Complaint: Dizziness/Syncope Stated Complaint: DIZZY Nursing Triage Note: PT AMBULATED TO ROOM 7 PT CO OF DIZZINESS AND SWEATING. DENIES C/P. Nursing Sepsis Screen: No Definite Risk Source: patient Exam Limitations: no limitations History of Present Illness Date Seen by Provider: July 09, 2019 Time Seen by Provider: 13:10 Initial Comments Here with report of acute onset of diaphoresis associated with dizziness. This occurred while he was sitting in the car waiting for his medial to be delivered. He was with his at the time. Denies slurred speech or focal weakness. Denies facial droop. Was concerned about the episode and feeling weak. Presented to the ER for evaluation. Denies chest pain but did have nausea without vomiting. Denies diarrhea. Never had anything like this before. Denies vision problems. Was able to walk in from the car with minimal assistance from . States feeling a little bit better now. Reports he has been constipated over the past few days which is not normal for him. Does have history of colon cancer in the family and gets appropriate colonoscopy evaluation on schedule and states he has not missed. He has not had any abnormal findings per the patient. Timing/Duration: 1/2 hour, changing over time, other (getting better) Severity/Quality: moderate, other (diaphoresis without chest pain) Radiation: no radiation Prior CP/Workup: no prior chest pain, stress test (negative. The patient), other (history of right bundle branch block) ASA po [employer] FAB[employer]ICATION: No NTG SL [employer] FABRICATION: No Associated Symptoms: No abdominal pain; diaphoresis, dizziness; No fatigue, No fever/chills; nausea/vomiting; No shortness of breath; weakness Allergies and Home Medications Allergies Coded Allergies: Penicillins (Verified Allergy, Unknown, ANAPHYLAXIS, 06/02/17) Home Medications Lisinopril 10 Mg Tablet, 10 MG PO DAILY, (Reported) Omeprazole 20 Mg Tablet.dr, 20 MG PO DAILY, (Reported) Patient Home Medication List Home Medication List Reviewed: Yes Review of Systems Review of Systems Constitutional: see HPI EENTM: No Symptoms Reported Respiratory: No Symptoms Reported Cardiovascular: Denies Chest Pain, Denies Edema, Denies Palpitations Gastrointestinal: See HPI, Constipated, Nausea Genitourinary: No Symptoms Reported Musculoskeletal: no symptoms reported Skin: no symptoms reported Psychiatric/Neurological: See HPI All Other Systems Reviewed Negative Unless Noted: Yes Past Spnfscx-Vlueip-Wjrizi Hx Past Med/Social Hx: Reviewed Nursing Past Med/Soc Hx Patient Social History Alcohol Use: Regular Use Number of Drinks Today: 1 Alcohol Beverage of Choice: Beer Recreational Drug Use: No Smoking Status: Never a Smoker Recent Foreign Travel: No Contact w/Someone Who Travel: No Recent Infectious Disease Expo: No Recent Hopitalizations: No Physical Abuse: No Sexual Abuse: No Immunizations Up To Date Tetanus Booster (TDap): Unknown Date of Influenza Vaccine: Dec 24, 2016 Seasonal Allergies Seasonal Allergies: Yes Past Medical History Surgeries: Yes (hammertoe sx) Respiratory: Yes Asthma Currently Using CPAP: No Currently Using BIPAP: No Cardiac: Yes Hypertension Neurological: No Reproductive Disorders: No Sexually Transmitted Disease: No Genitourinary: No Gastrointestinal: Yes Gastroesophageal Reflux, Sarmiento's Esophagus, Polyps Musculoskeletal: No Endocrine: No HEENT: No Cancer: No Psychosocial: No Integumentary: No Blood Disorders: No Family Medical History Reviewed Nursing Family Hx Physical Exam Vital Signs Vital Signs - First Documented 07/09/19 13:05 Temp 36.1 Pulse 78 Resp 21 B/P (MAP) 122/73 (89) Pulse Ox 96 O2 Delivery Room Air Capillary Refill : Less Than 3 Seconds Height, Weight, BMI Height: 5'11.00" Weight: 217lbs. 0.0oz. 98.117075er; 31.00 BMI Method: General Appearance: No Apparent Distress, WD/WN HEENT: PERRL/EOMI, Pharynx Normal Neck: Non Tender, Supple Respiratory: Lungs Clear, Normal Breath Sounds Cardiovascular: Regular Rate, Rhythm, No Murmur Gastrointestinal: Non Tender, Soft Extremity: Normal Range of Motion, Non Tender Neurologic/Psychiatric: Alert, Oriented x3, No Motor/Sensory Deficits, research physician II- XII Norm as Tested Skin: Normal Color, Warm/Dry Progress/Results/Core Measures Results/Orders Lab Results Laboratory Tests Test 07/09/19 13:10 Range/Units White Blood Count 13.0 H 4.3-11.0 10^3/uL Red Blood Count 4.93 4.35-5.85 10^6/uL Hemoglobin 15.0 13.3-17.7 G/DL Hematocrit 44 40-54 % Mean Corpuscular Volume 89 80-99 FL Mean Corpuscular Hemoglobin 30 25-34 PG Mean Corpuscular Hemoglobin Concent 34 32-36 G/DL Red Cell Distribution Width 14.7 H 10.0-14.5 % Platelet Count 394 130-400 10^3/uL Mean Platelet Volume 10.5 H 7.4-10.4 FL Neutrophils (%) (Auto) 77 H 42-75 % Lymphocytes (%) (Auto) 14 12-44 % Monocytes (%) (Auto) 8 0-12 % Eosinophils (%) (Auto) 1 0-10 % Basophils (%) (Auto) 1 0-10 % Neutrophils # (Auto) 10.0 H 1.8-7.8 X 10^3 Lymphocytes # (Auto) 1.8 1.0-4.0 X 10^3 Monocytes # (Auto) 1.0 0.0-1.0 X 10^3 Eosinophils # (Auto) 0.1 0.0-0.3 10^3/uL Basophils # (Auto) 0.1 0.0-0.1 10^3/uL Prothrombin Time 12.3 12.2-14.7 SEC INR Comment 0.9 0.8-1.4 Activated Partial Thromboplast Time 27 24-35 SEC D-Dimer 0.33 0.00-0.49 UG/ML Sodium Level 136 135-145 MMOL/L Potassium Level 3.9 3.6-5.0 MMOL/L Chloride Level 102 98-107 MMOL/L Carbon Dioxide Level 19 L 21-32 MMOL/L Anion Gap 15 H 5-14 MMOL/L Blood Urea Nitrogen 13 7-18 MG/DL Creatinine 1.28 0.60-1.30 MG/DL Estimat Glomerular Filtration Rate 56 BUN/Creatinine Ratio 10 Glucose Level 81 70-105 MG/DL Calcium Level 9.3 8.5-10.1 MG/DL Corrected Calcium 8.9 8.5-10.1 MG/DL Magnesium Level 2.1 1.6-2.4 MG/DL Total Bilirubin 0.4 0.1-1.0 MG/DL Aspartate Amino Transf (AST/SGOT) 21 5-34 U/L Alanine Aminotransferase (ALT/SGPT) 22 0-55 U/L Alkaline Phosphatase 54 40-136 U/L Myoglobin 67.1 10.0-92.0 NG/ML Troponin I < 0.028 <0.028 NG/ML Total Protein 7.8 6.4-8.2 GM/DL Albumin 4.5 3.2-4.5 GM/DL My Orders Orders - CARLOS CHANEL MD Cbc With Automated Diff (07/09/19:) Magnesium (07/09/19:22) Chest 1 View, Ap/Pa Only (07/09/19:22) Ekg Tracing (07/09/19 13:22) Comprehensive Metabolic Panel (07/09/19:22) Myoglobin Serum (07/09/19:22) Protime With Inr (07/09/19:) Partial Thromboplastin Time (07/09/19 13:22) O2 (07/09/19 13:22) Monitor-Rhythm Ecg Trace Only (07/09/19:) Lipid Panel (07/10/19 06:00) Ed Iv/Invasive Line Start (07/09/19:22) Fibrin Degradation Products (07/09/19:) Troponin I (07/09/19:) Aspirin Chewable Tablet (Baby Aspirin Ch (07/09/19 13:30) Medications Given in ED Current Medications Medications Dose Ordered Sig/Filiberto Route Start Time Stop Time Status Last Admin Dose Admin Aspirin 324 mg ONCE ONCE PO 07/09/19 13:30 07/09/19 13:31 DC 07/09/19 13:30 324 MG Vital Signs/I&O 07/09/19 13:05 Temp 36.1 Pulse 78 Resp 21 B/P (MAP) 122/73 (89) Pulse Ox 96 O2 Delivery Room Air Blood Pressure Mean: 89 Progress Progress Note : Progress Note Seen and evaluated. IV, labs, EKG and chest x-ray ordered. ASA 324 mg by mouth ordered. Consideration for strokelike symptoms. Patient is 0 on stroke scale and improving overall. I do not believe that this is stroke related. We will continue to monitor and reevaluate as needed. We did discuss CT of the head which patient states he doesn't really think he needs and I don't either at this point given his current findings. We will evaluate for chest pain equivalent which is more likely. Monitor patient. 1443: Overall things are looking okay. Chest x-ray shows small area of what is likely atelectasis in the left lung base. Radiology is recommending two-week follow-up. This was discussed with the patient. We did discuss repeat troponin evaluation. Patient states that he's been feeling fine throughout the whole visit and overall would like to just go home. No other indication for further testing currently. Have instructed him to follow-up with his doctor. He needs local cardiologists I will give him the on- call house parent that he can call and make appointment with as well. Discharged home with return precautions. Patient verbalize understanding instructions and agreement with plan. Initial ECG Impression Date: July 09, 2019 Initial ECG Impression Time: 13:10 Initial ECG Rate: 80 Initial ECG Rhythm: Normal Sinus Comment Sinus rhythm with right bundle-branch block. PACs noted. No evidence of ST elevation DC. No previous available for comparison. Patient reports that he has history of right bundle branch block. Interpreted by me. Diagnostic Imaging Diagonstic Imaging: Xray Plain Films/CT/US/NM/MRI: chest Comments [facility] [place], [place] NAME: MAURO ROY [facility] REC#: [id number] PT STATUS: REG ER : 1950 PHYSICIAN: CARLOS CHANEL MD ADMIT DATE: 07/09/19/ER Signed Date of Exam:07/09/19 CHEST 1 VIEW, AP/PA ONLY Indication: Lightheadedness. Comparison: None. Findings: Single view of the chest demonstrates some opacity in the left lung base which could be atelectasis. Followup with 2 views recommended. Chronic interstitial changes otherwise present bilaterally. The heart is prominent without pulmonary edema. There is no pneumothorax or large effusion. Osseous structures stable. Impression: Opacity left lung base, probably atelectasis. Followup with 2 views recommended. Dictated by: Dictated on workstation # [id number] Dict: 07/09/19 1342 Trans: 07/09/19 1405 [facility] [id number] Interpreted by: MICHAEL GORDON Electronically signed by: MICHAEL GORDON 07/09/19 1405 Departure Impression Primary Impression: Dizziness Additional Impression: Abnormal finding on chest xray Disposition: 01 HOME, SELF-CARE Condition: Improved Departure-Patient Inst. Decision time for Depature: 14:45 Referrals: NO,LOCAL PHYSICIAN (PCP/Family) Primary Care Physician Patient Instructions: Chest Pain (DC), Vertigo (a Type of Dizziness) (DC) Add. Discharge Instructions: All discharge instructions reviewed with patient and/or family. Voiced understanding. Continue home medications as previously prescribed. The chest x-ray showed an area in the left lower lobe at the base that may just be atelectasis per radiology would like repeat chest x-ray in 2 weeks for recheck. You may do this through your doctor's office, urgent care or here. You should follow up with your doctor for recheck and further evaluation. You should seek local house parent and you may call the one listed or of your choosing for appointment for recheck and further evaluation as well. Return for chest pain, sweating, weakness, nausea, vomiting or breathing problems. Return for other concerns as needed. Copy Copies To 1: LAKESHIA SAHU TIMOTHY D MD July 09, 2019 13:42
[2019-07-09 13:50] LABS: BASOPHILS # (AUTO) 0.1 10^3/uL (0.0-0.1); BASOPHILS % (AUTO) 1 % (0-10); EOSINOPHILS # (AUTO) 0.1 10^3/uL (0.0-0.3); EOSINOPHILS % (AUTO) 1 % (0-10); HEMATOCRIT 44 % (40-54); LYMPHOCYTES # (AUTO) 1.8 X 10^3 (1.0-4.0); LYMPHOCYTES % (AUTO) 14 % (12-44); MEAN CORPUSCULAR HEMOGLOBIN 30 PG (25-34); MEAN CORPUSCULAR HGB CONC 34 G/DL (32-36); MEAN CORPUSCULAR VOLUME 89 FL (80-99); MEAN PLATELET VOLUME 10.5 FL (7.4-10.4); MONOCYTES % (AUTO) 8 % (0-12); NEUTROPHILS % (AUTO) 77 % (42-75); PLATELET COUNT 394 10^3/uL (130-400); RED CELL DISTRIBUTION WIDTH 14.7 % (10.0-14.5)
[2019-07-09 13:53] LABS: ALBUMIN 4.5 GM/DL (3.2-4.5)
[2019-07-09 13:54] LABS: INR 0.9 (0.8-1.4); POTASSIUM 3.9 MMOL/L (3.6-5.0); PROTHROMBIN TIME PATIENT 12.3 SEC (12.2-14.7)
[2019-07-09 13:55] LABS: CALCIUM 9.3 MG/DL (8.5-10.1)
[2019-07-09 13:56] LABS: TOTAL PROTEIN 7.8 GM/DL (6.4-8.2)
[2019-07-09 13:58] LABS: BILIRUBIN,TOTAL 0.4 MG/DL (0.1-1.0)
[2019-07-09 14:00] LABS: CREATININE SERUM 1.28 MG/DL (0.60-1.30)
[2019-07-09 14:03] LABS: MAGNESIUM 2.1 MG/DL (1.6-2.4)
--- NOTE | 2019-07-09 14:04 | Diagnostic Imaging Report ---
Indication: Lightheadedness. Comparison: None. Findings: Single view of the chest demonstrates some opacity in the left lung base which could be atelectasis. Followup with 2 views recommended. Chronic interstitial changes otherwise present bilaterally. The heart is prominent without pulmonary edema. There is no pneumothorax or large effusion. Osseous structures stable. Impression: Opacity left lung base, probably atelectasis. Followup with 2 views recommended. Dictated by: Dictated on workstation # [id number]
[2019-07-09 14:40] VITALS: BP 131/77
== END 2019-07-09 14:50 | disposition home or self-care (01) ==
LOC: EDUNIT# 13:02 → ER 13:03
DX: R42 Dizziness and giddiness (principal); R91.8 Other nonspecific abnormal finding of lung field; I10 Essential (primary) hypertension; K21.9 Gastro-esophageal reflux disease without esophagitis; Z88.0 Allergy status to penicillin
CPT/HCPCS: 36415; 71045; 80053; 83735; 83874; 84484; 85025; 85379; 85610; 85730; 93005; 93041

== ENCOUNTER 2019-08-18 05:35 | Outpatient (RCR) | payer MEDICARE, OTHER ==
[~2019-08-18] VITALS: Ht 177 cm; Wt 99.0 kg
[~2019-08-18 05:35] MED LIST changes: +PANT40TA3 PO
== END 2019-08-18 11:35 | disposition home or self-care (01) ==
LOC: PREOP 05:35
PROVIDERS: ATTEND Surgery
DX: Z01.818 Encounter for other preprocedural examination (principal); Z11.59 Encounter for screening for other viral diseases
CPT/HCPCS: 87635

== ENCOUNTER 2019-08-23 07:09 | Day surgery (SDC) | payer MEDICARE, OTHER ==
[~2019-08-23] VITALS: Ht 177 cm; Wt 99.0 kg
[2019-08-23] MEDS ORDERED: LACTATED RINGERS 1,000 ML IV STA (07:10)
--- OUTSIDE RECORDS SUMMARY | 2019-08-23 07:13 | XMS REPORT | Continuity of Care Document ---
Author Organization Unknown Address Unknown Phone Unavailable Allergies Active Description Code Type Severity Reaction Onset Reported/Identified Relationship to Patient Clinical Status Yes No Known Drug Allergies [id number] Drug Allergy Unknown N/A 06/03/2010 Yes Penicillins [id number] Drug Aller gy Unknown ANAPHYLAXIS 06/02/2017 Yes Penicillins [id number] Drug Aller gy Severe ANAPHYLAXIS 08/17/2019 Medications There is no data. Problems Date Dx Coded Attending Type Code Diagnosis Diagnosed By 01/22/1134 JESSICA NICOLAS DO Ot Z01.818 ENCOUNTER FOR OTHER PREPROCEDURAL EXAMIN 01/22/1134 JESSICA NICOLAS DO Ot Z11. 59 ENCOUNTER FOR SCREENING FOR OTHER VIRAL 06/02/2017 JESSICA NICOLAS DO Ot Z01.818 ENCOUNTER [...] 06/09/2017 JESSICA NICOLAS DO Ot Z79.899 OTHER FACULTY PHYSICIAN (CURRENT) DRUG THERAPY 06/09/2017 JESSICA NICOLAS DO [...] 06/12/2017 JESSICA NICOLAS DO Ot Z79.899 OTHER SKILLED NURSING (CURRENT) DRUG THERAPY 06/12/2017 JESSICA NICOLAS DO Ot Z80. 0 FAMILY HISTORY OF MALIGNANT NEOPLASM OF 06/12/2017 JESSICA NICOLAS DO Ot Z86.010 PERSONAL HISTORY OF COLONIC POLYPS 06/19/2017 JESSICA NICOLAS DO Ot D12. 5 BENIGN NEOPLASM OF SIGMOID COLON 06/19/2017 JESSICA NICOLAS DO Ot I10 ESSENTIAL (PRIMARY) HYPERTENSION 06/19/2017 JESSICA NICOLAS DO Ot J45.909 UNSPECIFIED ASTHMA, UNCOMPLICATED 06/19/2017 JESSICA NICOLSA DO Ot K21. 0 GASTRO-ESOPHAGEAL REFLUX DISEASE [...] 06/19/2017 JESSICA NICOLAS DO Ot Z79.899 OTHER SKILLED NURSING (CURRENT) DRUG THERAPY 06/19/2017 JESSICA NICOLAS DO [...] 06/20/2017 JESSICA NICOLAS DO Ot Z79.899 OTHER FACULTY PHYSICIAN (CURRENT) DRUG THERAPY 06/20/2017 JESSICA NICOLAS DO [...] 08/03/2018 JESSICA NICOLAS DO Ot Z79.899 OTHER FACULTY PHYSICIAN (CURRENT) DRUG THERAPY 08/03/2018 JESSICA NICOLAS DO [...] Ot Z01.818 ENCOUNTER FOR OTHER PREPROCEDURAL EXAMIN 07/09/2019 CARLOS CHANEL MD Ot I10 ESSENTIAL (PRIMARY) HYPERTENSION 07/09/2019 CARLOS CHANEL MD Ot K21.9 GASTRO-ESOPHAGEAL REFLUX DISEASE WITHOUT 07/09/2019 CARLOS CHANEL MD Ot R42 DIZZINESS AND GIDDINESS 07/09/2019 CARLOS CHANEL MD Ot R91.8 OTHER NONSPECIFIC ABNORMAL FINDING OF EBONI 07/09/2019 CARLOS CHANEL MD Ot Z88.0 ALLERGY STATUS TO PENICILLIN 07/12/2019 CARLOS CHANEL MD Ot I10 ESSENTIAL (PRIMARY) HYPERTENSION 07/12/2019 CARLOS CHANEL MD Ot K21.9 GASTRO-ESOPHAGEAL REFLUX DISEASE WITHOUT 07/12/2019 CARLOS CHANEL MD Ot R42 DIZZINESS AND GIDDINESS 07/12/2019 CARLOS CHANEL MD Ot R91.8 OTHER NONSPECIFIC ABNORMAL FINDING OF EBONI 07/12/2019 CARLOS CHANEL MD Ot Z88.0 ALLERGY STATUS TO PENICILLIN 07/15/2019 CARLOS CHANEL MD Ot I10 ESSENTIAL (PRIMARY) HYPERTENSION 07/15/2019 CARLOS CHANEL MD Ot K21.9 GASTRO-ESOPHAGEAL REFLUX DISEASE WITHOUT 07/15/2019 CARLOS CHANEL MD Ot R42 DIZZINESS AND GIDDINESS 07/15/2019 CARLOS CHANEL MD Ot R91.8 OTHER NONSPECIFIC ABNORMAL FINDING OF EBONI 07/15/2019 CARLOS CHANEL MD Ot Z88.0 ALLERGY STATUS TO PENICILLIN Procedures There is no data. Results Test Result Range Complete blood count (CBC) with automate d white blood cell (WBC) differential - 07/09/19 13:10 Blood leukocytes automated count (number/volume) 13.0 10*3/uL 4.3-11.0 Blood erythrocytes automated count (number/volume) 4.93 10*6/uL 4.35-5.85 Venous blood hemoglobin measurement (mass/volume) 15.0 g/dL 13.3-17.7 Blood hematocrit (volume fraction) 44 % 40-54 Automated erythrocyte mean corpuscular volume 89 [ foz_us] 80-99 Automated erythrocyte mean corpuscular h emoglobin (mass per erythrocyte) 30 pg 25-34 Automated erythrocyte mean corpuscular h emoglobin concentration measurement (mass/volume) 34 g/dL 32-36 Automated erythrocyte distribution width ratio 14. 7 % 10.0- 14.5 Automated blood platelet count (count/volume) 394 10*3/uL 130-400 Automated blood platelet mean volume measurement 10.5 [foz_us] 7.4-10.4 Automated blood neutrophils/100 leukocytes 77 % 42-75 Automated blood lymphocytes/100 leukocytes 14 % 12-44 Blood monocytes/100 leukocytes 8 % 0-12 Automated blood eosinophils/100 leukocytes 1 % 0-10 Automated blood basophils/100 leukocytes 1 % 0-10 Blood neutrophils automated count (number/volume) 10.0 10*3 1.8-7.8 Blood lymphocytes automated count (number/volume) 1.8 10*3 1.0-4.0 Blood monocytes automated count (number/volume) 1. 0 10*3 0.0-1.0 Automated eosinophil count 0.1 10*3/uL 0 .0-0.3 Automated blood basophil count (count/volume) 0.1 10*3/uL 0.0-0.1 Comprehensive metabolic panel - 07/09/19 13:10 Serum or plasma sodium measurement (moles/volume) 136 mmol/L 135-145 Serum or plasma potassium measurement (moles/volume) 3.9 mmol/L 3.6-5.0 Serum or plasma chloride measurement (moles/volume) 102 mmol/L 98-107 Carbon dioxide 19 mmol/L 21-32 Serum or plasma anion gap determination (moles/volume) 15 mmol/L 5-14 Serum or plasma urea nitrogen measurement (mass/volume ) 13 mg/dL 7-18 Serum or plasma creatinine measurement (mass/volume) 1.28 mg/dL 0.60-1.30 Serum or plasma urea nitrogen/creatinine mass ratio 10 NRG Serum or plasma creatinine measurement w ith calculation of estimated glomerular filtration rate 56 NRG Serum or plasma glucose measurement (mass/volume) 81 mg/dL 70-105 Serum or plasma calcium measurement (mass/volume) 9.3 mg/dL 8.5-10.1 Serum or plasma total bilirubin measurement (mass/volu me) 0.4 mg/dL 0.1-1.0 Serum or plasma alkaline phosphatase flores surement (enzymatic activity/volume) 54 U/L 40-136 Serum or plasma aspartate aminotransfera se measurement (enzymatic activity/volume) 21 U/L 5-34 Serum or plasma alanine aminotransferase measurement (enzymatic activity/volume) 22 U/L 0-55 Serum or plasma protein measurement (mass/volume) 7.8 g/dL 6.4-8.2 Serum or plasma albumin measurement (mass/volume) 4.5 g/dL 3.2-4.5 CALCIUM CORRECTED 8.9 mg/dL 8.5-10.1 PT panel in platelet poor plasma by coag ulation assay - 07/09/19 13:10 Prothrombin time (PT) in platelet poor plasma by coagu lation assay 12.3 s 12.2-14.7 INR in platelet poor plasma or blood by coagulation as say 0.9 0.8-1.4 Activated partial thromboplastin time (a PTT) in platelet poor plasma bycoagulation assay - 07/09/19 13:10 Activated partial thromboplastin time (a PTT) in platelet poor plasma bycoagulation assay 27 s 24-35 Fibrin D-dimer FEU measurement in platel et poor plasma (mass/volume) - 07/09/19 13:10 Fibrin D-dimer FEU measurement in platelet poor plasma (mass/volume) 0.33 ug/mL 0.00-0.49 Magnesium - 07/09/19 13:10 Magnesium 2.1 mg/dL 1.6-2.4 Serum or plasma troponin i.cardiac measu rement (mass/volume) - 07/09/19 13:10 Serum or plasma troponin i.cardiac measurement (mass/v olume) < ng/mL <0.028 Myoglobin, serum - 07/09/19 13:10 Myoglobin, serum 67.1 ng/mL 10.0-92.0 Coronavirus SARS-CoV-2 SO 2018 - 0 08:00 Coronavirus Ab [Units/volume] in Serum Negative Negative Encounters ACCT No. Visit Date/Time Discharge Status Pt. Type Provider Facility Loc./Unit Complaint [id number] 05/30/2019 15:40:00 05/30/2019 23:59: 59 CLS Outpatient [facility] [id number] 08/18/2019 05:35:00 020 11:35:00 DIS Outpatient NICOLAS JESSICA DE LEÓN [facility] PREOP EGD [id number] 07/09/2019 13:03:00 020 14:50:00 DIS Emergency CARLOS CHANEL MD [facility] ER DIZZY [id number] 08/03/2018 06:59:00 019 09:30:00 DIS Outpatient JESSICA NICOLAS DO [facility] ENDO HX COLON POLYPS/FAMILY HX COLON CA/HX MCINTOSH'S [id number] 08/02/2018 10:30:00 019 11:00:00 DIS Outpatient JESSICA NICOLAS DO [facility] PREOP COLONOSCOPY/EGD [id number] 06/09/2017 07:15:00 018 10:20:00 DIS Outpatient JESSICA NICOLAS DO [facility] ENDO SCREENING [id number] 06/02/2017 05:36:00 018 12:35:00 DIS Outpatient JESSICA NICOLAS DO [facility] PREOP COLONOSCOPY [id number] 08/23/2019 08:00:00 P EN Preadmit JESSICA NICOLAS DO [facility] ENDO MCINTOSH'S/EPIGASTRIC ABD JAMSHID N
[2019-08-23] MEDS ORDERED: HURRICAINE EXT TUBE (BENZOCAINE) XX PRN (07:15)
[2019-08-23] MEDS ORDERED: LACTATED RINGERS 1,000 ML IV ONE (07:16)
[2019-08-23] MEDS ORDERED: proPOfol 200 MG/20 ML (DIPRIVAN) VIAL IV ONE (07:34)
[2019-08-23 07:35] VITALS: BP 150/86
[2019-08-23] MEDS ORDERED: MIDAZOLAM 2 MG/2 ML (VERSED) VIAL ONE (07:35)
[2019-08-23] MEDS ORDERED: HURRICAINE EXT TUBE (BENZOCAINE) ONE (07:52)
--- NOTE | 2019-08-23 07:57 | Progress Note-Pre Operative ---
Pre-Operative Progress Note H&P Reviewed The H&P was reviewed, patient examined and no changes noted. Date Seen by Provider: Aug 23, 2019 Time Seen by Provider: 07:47 Date H&P Reviewed: Aug 23, 2019 Time H&P Reviewed: 07:47 Pre-Operative Diagnosis: lira's, epigastric abd pain JESSICA NICOLAS DO Aug 23, 2019 07:57
[2019-08-23 08:20] VITALS: BP_SYST 115; BP_SYST 120; BP_DIAS 76; BP_DIAS 79
--- NOTE | 2019-08-23 08:24 | Progress Note-Post Operative ---
Post-Operative Progess Note Surgeon (s)/Diabetes Education Coordinator (s) Surgeon JESSICA NICOLAS DO Diabetes Education Coordinator: na Pre-Operative Diagnosis lira's, epigastric abd pain Post-Operative Diagnosis hiatal hernia, lira's Procedure & Operative Findings Date of Procedure 08/23/19 Procedure Performed/Findings egd c biopsies Anesthesia Type per mda Estimated Blood Loss Estimated blood loss (mL): scant Specimens/Packing Specimens Removed antrum, ge JESSICA NICOLAS DO Aug 23, 2019 08:24
[2019-08-23] MEDS ORDERED: SUCR1TAB36 PO (08:25)
--- NOTE | 2019-08-23 08:26 | Discharge Inst-Simple/Standard ---
Discharge Inst-Standard Discharge Medications New, Converted or Re-Newed RX: Transmitted to Pharmacy Patient Instructions/Follow Up Plan of Care/Instructions/FU: 2 weeks kayleigh Activity as Tolerated: Yes Discharge Diet: Regular Diet JESSICA NICOLAS DO Aug 23, 2019 08:26
[2019-08-23 08:45] VITALS: BP 120/79
[2019-08-23 08:46] VITALS: BP 123/75
--- NOTE | 2019-08-23 10:32 | Anesthesia-General Post-Op ---
MAC Patient Condition Mental Status/LOC: Same as Preop Cardiovascular: Satisfactory Nausea/Vomiting: Absent Respiratory: Satisfactory Pain: Controlled Complications: Absent Post Op Complications Complications None Follow Up Care/Instructions Patient Instructions None needed. Anesthesiology Discharge Order Discharge Order Patient was seen this morning after the procedure and he was doing well, no complaints, stable vital signs, no apparent adverse anesthesia problems. NII GUNTER DO Aug 23, 2019 10:32
--- NOTE | 2019-08-23 12:57 | OPERATIVE REPORT ---
DATE OF SERVICE: 08/23/2019 PREOPERATIVE DIAGNOSES: Sarmiento's esophagus, epigastric abdominal pain. POSTOPERATIVE DIAGNOSES: Hiatal hernia and Sarmiento's esophagus. PROCEDURE: EGD with biopsy. SURGEON: Jessica Hilario DO ANESTHESIA: Per MDA. ESTIMATED BLOOD LOSS: Scant. COMPLICATIONS: None. INDICATIONS: The patient is a 68-year-old male with history of Sarmiento's. He understands risks and benefits of procedure. He has also been having some slight epigastric abdominal pain. Consent was signed in the chart. DESCRIPTION OF PROCEDURE: The patient was taken to the endoscopy suite, placed in left lateral recumbent position. Timeout was performed. Scope was inserted in mouth, down the esophagus, stomach and into the duodenum without difficulty. There were no polyps, masses or ulcerations within the duodenum. Scope was then slowly retracted back into the stomach where it was further insufflated. Biopsy of the antrum was obtained. There were no polyps, masses or ulcerations. Multiple polyps, all benign appearing within the stomach. Scope was retroflexed noting approximately 3 cm hiatal hernia. Scope was returned to its normal position, slowly withdrawn to the distal esophagus where 4-quadrant biopsies of appearing Sarmiento's present. This was a short segment. Scope was then slowly retracted back noting no other pathology. The patient tolerated procedure well without any complications. He was taken to recovery room in stable condition. RECOMMENDATIONS: Continue on Protonix. We will add Carafate. The patient will follow up in 2 weeks to discuss pathology results. Likely need repeat endoscopy in 2 years. Job ID: [id number] DocumentID: [id number] Dictated Date: 08/23/2019 08:28:23 Supervisor Ore Dressing Date: 08/23/2019 12:56:20 Dictated By: JESSICA HILARIO DO
== END 2019-08-23 08:50 | disposition home or self-care (01) ==
LOC: ENDO 07:09
PROVIDERS: ATTEND Surgery
DX: K22.70 Barrett's esophagus without dysplasia (principal); K21.0 Gastro-esophageal reflux disease with esophagitis; I10 Essential (primary) hypertension; J45.909 Unspecified asthma, uncomplicated; K44.9 Diaphragmatic hernia without obstruction or gangrene; Z88.0 Allergy status to penicillin; Z79.899 Other long term (current) drug therapy
CPT/HCPCS: 88305

== ENCOUNTER 2020-03-16 05:32 | Outpatient (RCR) | payer MEDICARE, OTHER ==
[~2020-03-16] VITALS: Ht 180.3 cm; Wt 99.8 kg
[~2020-03-16 05:32] MED LIST changes: -PANT40TA3 PO; +PANT40TA52 PO; +SUCR1TAB36 PO
== END 2020-03-16 10:05 | disposition home or self-care (01) ==
LOC: PREOP 05:32
PROVIDERS: ATTEND Surgery
DX: Z01.812 Encounter for preprocedural laboratory examination (principal); R97.0 Elevated carcinoembryonic antigen [CEA]; Z20.822 Contact with and (suspected) exposure to COVID-19
CPT/HCPCS: 87635

== ENCOUNTER 2020-03-20 07:37 | Day surgery (SDC) | payer MEDICARE, OTHER ==
[2020-03-20] VITALS (7 sets, daily range): BP systolic 122–179; BP diastolic 72–100
[~2020-03-20] VITALS: Ht 180.3 cm; Wt 99.8 kg
[2020-03-20] MEDS ORDERED: LACTATED RINGERS 1,000 ML IV ONE (07:40)
[2020-03-20] MEDS ORDERED: LACTATED RINGERS 1,000 ML IV STA (07:44)
[2020-03-20] MEDS ORDERED: MIDAZOLAM 2 MG/2 ML (VERSED) VIAL ONE (08:00)
[2020-03-20] MEDS ORDERED: proPOfol 200 MG/20 ML (DIPRIVAN) VIAL IV ONE (08:00)
--- NOTE | 2020-03-20 08:20 | Progress Note-Pre Operative ---
Pre-Operative Progress Note H&P Reviewed The H&P was reviewed, patient examined and no changes noted. Date Seen by Provider: Mar 20, 2020 Time Seen by Provider: 08:20 Date H&P Reviewed: Mar 20, 2020 Time H&P Reviewed: 08:20 Pre-Operative Diagnosis: family hx colon cancer, elevated cea JESSICA NICOLAS DO Mar 20, 2020 08:20
--- NOTE | 2020-03-20 10:16 | Progress Note-Post Operative ---
Post-Operative Progess Note Surgeon (s)/District Wildlife Manager (s) Surgeon JESSICA NICOLAS DO District Wildlife Manager: na Pre-Operative Diagnosis family hx colon cancer, elevated cea Post-Operative Diagnosis diverticulosis, sigmoid colon polyp x 2 Procedure & Operative Findings Date of Procedure 03/20/20 Procedure Performed/Findings colonoscopy c hot bx polypectomy x 2 Anesthesia Type per weaving teacher Estimated Blood Loss Estimated blood loss (mL): none Specimens/Packing Specimens Removed colon polyp x 2 JESSICA NICOLAS DO Mar 20, 2020 10:16
--- NOTE | 2020-03-20 10:17 | Discharge Inst-Simple/Standard ---
Discharge Inst-Standard Patient Instructions/Follow Up Plan of Care/Instructions/FU: 2 weeks Yanelis Activity as Tolerated: Yes Discharge Diet: Regular Diet JESSICA NICOLAS DO Mar 20, 2020 10:17
--- NOTE | 2020-03-20 16:03 | OPERATIVE REPORT ---
DATE OF SERVICE: 03/20/2020 PREOPERATIVE DIAGNOSES: Family history of colon cancer and elevated CEA. POSTOPERATIVE DIAGNOSES: Diverticulosis, sigmoid colon polyp x2. PROCEDURES PERFORMED: Colonoscopy with hot biopsy polypectomy x2. SURGEON: Jessica Hilario DO. ANESTHESIA: Per EXPORT MANAGER. ESTIMATED BLOOD LOSS: None. COMPLICATIONS: None. SPECIMENS: Two colon polyps. INDICATIONS FOR PROCEDURE: The patient is a 69-year-old male with family history of colon cancer and had an elevated CEA. He understands the risks and benefits of the procedure and wished to proceed with the procedure. Consent was signed in the chart. DESCRIPTION OF PROCEDURE: The patient was taken to the endoscopy suite and placed in a left lateral recumbent position. Timeout was performed. Digital rectal exam was performed. There were no palpable polyps, masses or ulcerations. Prostate felt slightly enlarged and slightly boggy. Scope was inserted in the rectum, advanced all the way to cecum with minimal difficulty. Prep was adequate. Scope was then slowly retracted back. There were no polyps, masses or ulcerations within the cecum, ascending, transverse or descending colon. In the sigmoid colon, two small polyps were present, which hot biopsy polypectomy was performed. Also, diverticulosis was present. The scope was then continuously retracted back in the rectum. It was also retroflexed noting no other pathology. The patient tolerated the procedure well without any complications and taken to recovery room in stable condition. RECOMMENDATIONS: The patient will need repeat colonoscopy on as needed basis. Would also consider urology consultation for a slightly enlarged prostate. The patient will follow up in two weeks to discuss pathology results. I also recommended high fiber diet due to diverticulosis. Job ID: [id number] DocumentID: [id number] Dictated Date: 03/20/2020 10:19:37 Admitting Manager Date: 03/20/2020 16:02:57 Dictated By: JESSICA HILARIO DO
--- NOTE | 2020-03-21 09:55 | Anesthesia-General Post-Op ---
MAC Significant Intra-Op Events Notes addendum 03-20-20 at 1400 Patient Condition Mental Status/LOC: Same as Preop Cardiovascular: Satisfactory Nausea/Vomiting: Absent Respiratory: Satisfactory Pain: Controlled Complications: Absent Post Op Complications Complications None Follow Up Care/Instructions Patient Instructions None needed. Anesthesiology Discharge Order Discharge Order Patient is doing well, no complaints, stable vital signs, no apparent adverse anesthesia problems. No complications reported per nursing. FAREED BROWN CRNA Mar 21, 2020 09:55
== END 2020-03-20 10:22 | disposition home or self-care (01) ==
LOC: ENDO 07:37
PROVIDERS: ATTEND Surgery
DX: K63.5 Polyp of colon (principal); I10 Essential (primary) hypertension; J45.909 Unspecified asthma, uncomplicated; K21.9 Gastro-esophageal reflux disease without esophagitis; K57.30 Diverticulosis of large intestine without perforation or abscess without bleeding; E66.9 Obesity, unspecified; Z68.30 Body mass index [BMI] 30.0-30.9, adult; Z79.899 Other long term (current) drug therapy; Z79.51 Long term (current) use of inhaled steroids; Z88.0 Allergy status to penicillin; Z80.0 Family history of malignant neoplasm of digestive organs
CPT/HCPCS: 88305

== ENCOUNTER 2021-09-25 05:41 | Outpatient (RCR) | payer MEDICARE ==
[~2021-09-25] VITALS: Ht 177.8 cm; Wt 94.3 kg
[~2021-09-25 05:41] MED LIST changes: -LISI10TA2 PO; +LISI10TA25 PO; +OMEP20TA56 PO; -OMEP20TA7 PO
== END 2021-10-03 10:00 | disposition home or self-care (01) ==
LOC: PREOP 05:41 → EDSTATUS 10:00 → PREOP 10-03 10:00
PROVIDERS: ATTEND Surgery
DX: Z01.818 Encounter for other preprocedural examination (principal)

== ENCOUNTER 2021-10-08 07:06 | Day surgery (SDC) | payer MEDICARE ==
[~2021-10-08] VITALS: Ht 177.8 cm; Wt 94.3 kg
[2021-10-08] MEDS ORDERED: LACTATED RINGERS 1,000 ML IV STA (07:10)
[2021-10-08] MEDS ORDERED: HURRICAINE EXT TUBE (BENZOCAINE) XX PRN (07:15)
[2021-10-08 07:33] VITALS: BP 149/99
[2021-10-08] MEDS ORDERED: proPOfol 200 MG/20 ML (DIPRIVAN) VIAL IV ONE ×2 (07:47→07:49)
[2021-10-08] MEDS ORDERED: MIDAZOLAM 2 MG/2 ML (VERSED) VIAL ONE (07:49)
[2021-10-08] MEDS ORDERED: SUCR1TAB36 PO (08:34)
--- NOTE | 2021-10-08 08:35 | Discharge Inst-Simple/Standard ---
Discharge Inst-Standard Discharge Medications New, Converted or Re-Newed RX: RX on Chart Patient Instructions/Follow Up Plan of Care/Instructions/FU: 2 weeks Yanelis Activity as Tolerated: Yes Discharge Diet: Regular Diet JESSICA NICOLAS DO Oct 08, 2021 08:35
--- NOTE | 2021-10-08 08:36 | Progress Note-Post Operative ---
Post-Operative Progess Note Surgeon (s)/Well Service Floorperson (s) Surgeon JESSICA NICOLAS DO Well Service Floorperson: na Pre-Operative Diagnosis hx lira's Post-Operative Diagnosis hiatal hernia, gastric polyps, barretts Procedure & Operative Findings Date of Procedure 10/08/21 Procedure Performed/Findings egd c biopsies Anesthesia Type per tray filler Estimated Blood Loss Estimated blood loss (mL): scant Specimens/Packing Specimens Removed antrum, ge JESSICA NICOLAS DO Oct 08, 2021 08:36
[2021-10-08 08:41] VITALS: BP 118/63
[2021-10-08 09:00] VITALS: BP 103/66
[2021-10-08 09:13] VITALS: BP 103/66
--- NOTE | 2021-10-08 12:56 | OPERATIVE REPORT ---
DATE OF SERVICE: 10/08/2021 PREOPERATIVE DIAGNOSIS: History of Sarmiento's. POSTOPERATIVE DIAGNOSES: Hiatal hernia, benign gastric polyps, and Sarmiento's esophagus. PROCEDURES PERFORMED: EGD with biopsies. SURGEON: Jessica Hilario DO. ANESTHESIA: Per WARE SERVER. ESTIMATED BLOOD LOSS: Scant. COMPLICATIONS: None. INDICATIONS FOR PROCEDURE: The patient is a 71-year-old male needing EGD for further evaluation of Sarmiento's. He understands the risks and benefits of the procedure and wishes to proceed. Consent was signed in the chart. DESCRIPTION OF PROCEDURE: The patient was taken to the endoscopy suite and placed in the left lateral recumbent position. Timeout was performed. Scope was inserted into the mouth, down the esophagus, stomach and into the duodenum without any polyps, masses or ulcerations. Scope was slowly retracted back into the stomach, where it was further insufflated. Benign-appearing gastric polyps. Biopsy of the antrum was obtained. No masses or ulcerations. Scope was retroflexed noting a moderate sized hiatal hernia, no other pathology. Scope was returned to its normal position, slowly withdrawn to distal esophagus, changes of Sarmiento's short segment present. Multiple biopsies were obtained of four quadrants. Scope was then slowly retracted back until completely removed noting no other pathology. The patient tolerated the procedure without any complications and was taken to recovery room in stable condition. RECOMMENDATIONS: We will add Carafate 1 gram four times a day. He will follow up in two weeks. We would recommend repeat EGD in two to three years. Job ID: [id number] DocumentID: [id number] Dictated Date: 10/08/2021 08:39:01 Engineer Design And Construction Date: 10/08/2021 12:56:12 Dictated By: JESSICA HILARIO DO
--- NOTE | 2021-10-08 14:14 | Anesthesia-General Post-Op ---
MAC Patient Condition Mental Status/LOC: Same as Preop Cardiovascular: Satisfactory Nausea/Vomiting: Absent Respiratory: Satisfactory Pain: Controlled Complications: Absent Post Op Complications Complications None Follow Up Care/Instructions Patient Instructions None needed. Anesthesiology Discharge Order Discharge Order Patient is doing well, no complaints, stable vital signs, no apparent adverse anesthesia problems. No complications reported per nursing. OCTAVIANO STORM CRNA Oct 08, 2021 14:14
== END 2021-10-08 09:10 | disposition home or self-care (01) ==
LOC: ENDO 07:06
PROVIDERS: ATTEND Surgery
DX: K22.10 Ulcer of esophagus without bleeding (principal); K31.9 Disease of stomach and duodenum, unspecified; K44.9 Diaphragmatic hernia without obstruction or gangrene; K31.7 Polyp of stomach and duodenum

== ENCOUNTER 2023-01-04 09:38 | Emergency (ER) | payer MEDICARE ==
[~2023-01-04] VITALS: Ht 177 cm; Wt 88.9 kg
[2023-01-04] MEDS ORDERED: NS IV 500 ML 500 ML IV STA (09:57)
[2023-01-04] MEDS ORDERED: ASPIRIN 81 MG CHEWABLE TABLET PO ONE (10:00)
--- NOTE | 2023-01-04 10:02 | ED Syncope ---
General Chief Complaint: Dizziness/Syncope Stated Complaint: LIGHT HEADED Source of Information: Patient, Family, RN/MD Exam Limitations: No Limitations History of Present Illness Date Seen by Provider: Jan 04, 2023 Time Seen by Provider: 09:40 Initial Comments 72-year-old male with past medical history most notable for hypertension and BPH coming in by private vehicle with his daughter after a near syncopal episode. He was sitting at [employer], felt lightheaded, slumped over, became less responsive and generally weak. He was assessed by a physician onsite, and their concerns were for orthostatic blood pressure. He did improve after several minutes. He was recently started on tamsulosin and he did take this dose last night. This same event has occurred at least twice in the past 3 years. His work-up has continually been negative for any findings. He has eaten and drinking slightly less in the past 24 hours. No vomiting, diarrhea, chest pain, shortness of breath, abdominal pain, nausea, focal weakness or numbness, vision changes, headache, or any other concerns. He feels at his baseline right now. Allergies and Home Medications Allergies Coded Allergies: Penicillins (Verified Allergy, Severe, ANAPHYLAXIS, 08/17/19) Patient Home Medication List Home Medication List Reviewed: Yes Lisinopril (Lisinopril) 10 Mg Tablet, 10 MG PO DAILY, (Reported) Entered as Reported by: SKIP CORNELL on 06/02/17 1227 Pantoprazole Sodium (Pantoprazole Sodium) 40 Mg Tablet.dr, 40 MG PO DAILY, (Reported) Entered as Reported by: ADRIAN REDDY on 08/17/19 0926 Sucralfate (Carafate) 1 Gram Tablet, 1 GM PO QID Prescribed by: JESSICA NICOLAS on 10/08/21 0834 Review of Systems Constitutional: No fever EENTM: no symptoms reported Respiratory: no symptoms reported Cardiovascular: see HPI Gastrointestinal: no symptoms reported Genitourinary: no symptoms reported Musculoskeletal: no symptoms reported Skin: no symptoms reported Psychiatric/Neurological: No Symptoms Reported Past Shyglii-Tkbvxv-Xolxtu Hx Patient Social History Tobacco Use?: No Use of E-Cig and/or Vaping dev: No Substance use?: No Alcohol Use?: Yes Alcohol type: Beer Alcohol Frequency: Daily Pt feels they are or have been: No Immunizations Up To Date Tetanus Booster (TDap): Unknown First/Initial COVID19 Vaccinat: YES Second COVID19 Vaccination Bartolo: YES Third COVID19 Vaccination Date: YES Seasonal Allergies Seasonal Allergies: Yes Past Medical History Surgery/Hospitalization HX: ASTHMA, ENLARGED PROSTATE SURG. HAMMER TOE REPAIR Surgeries: Yes (LT hammertoe sx) Respiratory: Yes Asthma Currently Using CPAP: No Currently Using BIPAP: No Cardiac: Yes Hypertension Neurological: No Reproductive Disorders: No Sexually Transmitted Disease: No HIV/AIDS: No Genitourinary: No Gastrointestinal: Yes Gastroesophageal Reflux, Sarmiento's Esophagus, Polyps Musculoskeletal: No Endocrine: No HEENT: No Loss of Vision: Denies Hearing Impairment: Denies Cancer: No Psychosocial: No Integumentary: No Blood Disorders: No Adverse Reaction/Blood Tranf: No (N/A) Physical Exam Vital Signs Vital Signs - First Documented 01/04/23 09:42 Temp 35.2 Pulse 75 Resp 20 B/P (MAP) 115/66 (82) O2 Delivery Room Air Capillary Refill : Height, Weight, BMI Height: 5'11.00" Weight: 217lbs. 0.0oz. [id number]; 27.00 BMI Method: General Appearance: No Apparent Distress, WD/WN HEENT: PERRL/EOMI, Normal ENT Inspection, Pharynx Normal Neck: Full Range of Motion, Normal Inspection, Non Tender, Supple Cardiovascular: Regular Rate, Rhythm, No Edema, Normal Peripheral Pulses Respiratory: Chest Non Tender, Lungs Clear, Normal Breath Sounds, No Accessory Muscle Use, No Respiratory Distress Gastrointestinal: Normal Bowel Sounds, Non Tender, Soft; No Distended, No Guarding Back: Normal Inspection, No CVA Tenderness Extremities: Normal Capillary Refill, Normal Inspection, Normal Range of Motion, Non Tender, No Calf Tenderness, No Pedal Edema Neurologic/Psychiatric: Alert, Oriented x3, No Motor/Sensory Deficits, Normal Mood/Affect, glass silverer II-XII Norm as Tested Cranial Nerves: Normal Hearing, Normal Speech, PERRL, Other (Normal visual magana and visual acuity) Coordination/Gait: Normal Finger to Nose, Normal Gait Motor/Sensory: No Motor Deficit, No Sensory Deficit, No Pronator Drift Skin: Normal Color, Warm/Dry Progress/Results/Core Measures Results/Orders Lab Results Laboratory Tests Test 01/04/23 09:50 01/04/23 11:02 Range/Units White Blood Count 6.0 4.3-11.0 10^3/uL Red Blood Count 4.50 4.30-5.52 10^6/uL Hemoglobin 14.2 13.3-17.7 g/dL Hematocrit 42 40-54 % Mean Corpuscular Volume 93 80-99 fL Mean Corpuscular Hemoglobin 32 25-34 pg Mean Corpuscular Hemoglobin Concent 34 32-36 g/dL Red Cell Distribution Width 13.1 10.0-14.5 % Platelet Count 295 130-400 10^3/uL Mean Platelet Volume 10.1 9.0-12.2 fL Immature Granulocyte % (Auto) 1 % Neutrophils (%) (Auto) 60 42-75 % Lymphocytes (%) (Auto) 22 12-44 % Monocytes (%) (Auto) 12 0-12 % Eosinophils (%) (Auto) 3 0-10 % Basophils (%) (Auto) 2 0-10 % Neutrophils # (Auto) 3.6 1.8-7.8 10^3/uL Lymphocytes # (Auto) 1.3 1.0-4.0 10^3/uL Monocytes # (Auto) 0.7 0.0-1.0 10^3/uL Eosinophils # (Auto) 0.2 0.0-0.3 10^3/uL Basophils # (Auto) 0.1 0.0-0.1 10^3/uL Immature Granulocyte # (Auto) 0.0 0.0-0.1 10^3/uL Prothrombin Time 13.2 12.2-14.7 SEC INR Comment 1.0 0.8-1.4 Activated Partial Thromboplast Time 25 24-35 SEC Sodium Level 129 L 135-145 MMOL/L Potassium Level 4.0 3.6-5.0 MMOL/L Chloride Level 99 98-107 MMOL/L Carbon Dioxide Level 24 21-32 MMOL/L Anion Gap 6 5-14 MMOL/L Blood Urea Nitrogen 14 7-18 MG/DL Creatinine 1.33 H 0.60-1.30 MG/DL Estimat Glomerular Filtration Rate 56 BUN/Creatinine Ratio 11 Glucose Level 83 70-105 MG/DL Calcium Level 9.1 8.5-10.1 MG/DL Corrected Calcium 9.0 8.5-10.1 MG/DL Magnesium Level 1.9 1.6-2.4 MG/DL Total Bilirubin 0.7 0.1-1.0 MG/DL Aspartate Amino Transf (AST/SGOT) 17 5-34 U/L Alanine Aminotransferase (ALT/SGPT) 13 0-55 U/L Alkaline Phosphatase 47 40-136 U/L Troponin I < 0.028 < 0.028 <0.028 NG/ML B-Type Natriuretic Peptide 22.5 <100.0 PG/ML Total Protein 7.3 6.4-8.2 GM/DL Albumin 4.1 3.2-4.5 GM/DL My Orders Orders - AIDEE BRIDGES MD Ekg Tracing (01/04/23 09:52) Monitor-Rhythm Ecg Trace Only (01/04/23 09:57) Chest 1 View, Ap/Pa Only (01/04/23 09:57) Bnp [place] (01/04/23 09:57) Cbc And Automated Diff (01/04/23 09:57) Comprehensive Metabolic Panel (01/04/23 09:57) Magnesium (01/04/23 09:57) Protime With Inr (01/04/23 09:57) Partial Thromboplastin Time (01/04/23 09:57) Troponin I [place] (01/04/23 09:57) Troponin I [place] (01/04/23 11:00) Ns Iv 500 Ml (Ns Iv 500 Ml) (01/04/23 09:57) Aspirin Chewable Tablet (Aspirin Chewabl (01/04/23 10:00) Medications Given in ED Current Medications Medications Dose Ordered Sig/Filiberto Route Start Time Stop Time Status Last Admin Dose Admin Aspirin 324 mg ONCE ONCE PO 01/04/23 10:00 01/04/23 10:01 DC 01/04/23 10:07 324 MG Vital Signs/I&O 01/04/23 09:42 Temp 35.2 Pulse 75 Resp 20 B/P (MAP) 115/66 (82) O2 Delivery Room Air Progress Progress Note : Progress Note 72-year-old man presenting for near syncopal episode after starting tamsulosin. ABCs were intact and vitals were stable on presentation. I suspect he had an orthostatic event while at [employer] earlier today and his blood pressure is now normal. On arrival here he was back to baseline. EKG ordered and interpreted by me showing no acute ischemic changes. I personally obtain orthostatic vitals, his blood pressure dropped by about 15 points systolic, not quite enough to be diagnosed with orthostatic hypotension. His heart rate also jumped about 10 points. He did recently start tamsulosin which I suspect is the culprit. An IV was placed and basic labs were obtained and were significant for normal hemoglobin, creatinine around his baseline, negative troponin x2. Chest x-ray ordered and interpreted by me showing no pneumothorax, no pneumonia, no significant abnormalities. Patient was given a gentle bolus of IV fluids while the work-up was pending. I believe he is stable for discharge with outpatient follow-up. He was sent home with strict return precautions. Initial ECG Impression Date: Jan 04, 2023 Initial ECG Impression Time: 09:57 Initial ECG Rate: 70 Initial ECG Rhythm: Normal Sinus Comment Wide QRS with a right bundle branch block, no STEMI, appears similar to prior EKG Diagnostic Imaging Diagonstic Imaging: Xray (chest) Comments [facility], [place] NAME: MAURO ROY [facility] REC#: [id number] PT STATUS: REG ER : 1950 PHYSICIAN: AIDEE BRIDGES MD ADMIT DATE: 01/04/23/ER Signed Date of Exam:01/04/23 CHEST 1 VIEW, AP/PA ONLY EXAMINATION: Chest 1 view HISTORY: Syncope COMPARISON: 07/09/2019 FINDINGS: The lungs are clear without edema or pneumonia. No pleural effusion or pneumothorax. Heart size is normal. IMPRESSION: 1. Clear lungs. Dictated by: Dictated on workstation # [id number] Dict: 01/04/23 1046 Trans: 01/04/23 1048 [facility] [id number] Interpreted by: JAMES PARR MD Electronically signed by: JAMES PARR MD 01/04/23 1048 Departure Impression Primary Impression: Near syncope Disposition: 01 HOME, SELF-CARE Condition: Stable Departure-Patient Inst. Decision time for Depature: 11:45 Referrals: AMARJIT DURAN DO (PCP/Family) Primary Care Physician Patient Instructions: Near Fainting Add. Discharge Instructions: This is likely related to your new medicine. We are not seeing any signs of heart attack or anything else life threatening. Please drink plenty of fluids while you are on your new medicine and see if your body adjusts. Follow back up with your regular doctor in the next few days to see how you are doing. AIDEE BRIDGES MD Jan 04, 2023 10:02
[2023-01-04 10:05] LABS: BASOPHILS # (AUTO) 0.1 10^3/uL (0.0-0.1); BASOPHILS % (AUTO) 2 % (0-10); EOSINOPHILS # (AUTO) 0.2 10^3/uL (0.0-0.3); EOSINOPHILS % (AUTO) 3 % (0-10); HEMATOCRIT 42 % (40-54); HEMOGLOBIN 14.2 g/dL (13.3-17.7); LYMPHOCYTES # (AUTO) 1.3 10^3/uL (1.0-4.0); LYMPHOCYTES % (AUTO) 22 % (12-44); MEAN CORPUSCULAR HEMOGLOBIN 32 pg (25-34); MEAN CORPUSCULAR HGB CONC 34 g/dL (32-36); MEAN CORPUSCULAR VOLUME 93 fL (80-99); MEAN PLATELET VOLUME 10.1 fL (9.0-12.2); MONOCYTES # (AUTO) 0.7 10^3/uL (0.0-1.0); MONOCYTES % (AUTO) 12 % (0-12); NEUTROPHILS # (AUTO) 3.6 10^3/uL (1.8-7.8); NEUTROPHILS % (AUTO) 60 % (42-75); PLATELET COUNT 295 10^3/uL (130-400)
[2023-01-04 10:10] LABS: PROTHROMBIN TIME PATIENT 13.2 SEC (12.2-14.7)
[2023-01-04 10:11] LABS: ALBUMIN 4.1 GM/DL (3.2-4.5); CHLORIDE 99 MMOL/L (98-107); SODIUM 129 MMOL/L (135-145)
[2023-01-04 10:13] LABS: CALCIUM 9.1 MG/DL (8.5-10.1)
[2023-01-04 10:14] LABS: GLUCOSE 83 MG/DL (70-105); TOTAL PROTEIN 7.3 GM/DL (6.4-8.2)
[2023-01-04 10:15] LABS: BILIRUBIN,TOTAL 0.7 MG/DL (0.1-1.0); CARBON DIOXIDE 24 MMOL/L (21-32)
[2023-01-04 10:17] LABS: ALKALINE PHOSPHATASE 47 U/L (40-136); CREATININE SERUM 1.33 MG/DL (0.60-1.30); GFR ESTIMATED 56
[2023-01-04 10:18] LABS: BUN/CREATININE RATIO 11
[2023-01-04 10:20] LABS: ALANINE AMINOTRANSFERASE 13 U/L (0-55); MAGNESIUM 1.9 MG/DL (1.6-2.4)
--- NOTE | 2023-01-04 10:49 | Diagnostic Imaging Report ---
EXAMINATION: Chest 1 view HISTORY: Syncope COMPARISON: 07/09/2019 FINDINGS: The lungs are clear without edema or pneumonia. No pleural effusion or pneumothorax. Heart size is normal. IMPRESSION: 1. Clear lungs. Dictated by: Dictated on workstation # [id number]
[2023-01-04 11:57] VITALS: BP 162/91
== END 2023-01-04 12:05 | disposition home or self-care (01) ==
LOC: EDUNIT# 09:38 → ER 09:39
DX: R55 Syncope and collapse (principal); I10 Essential (primary) hypertension
CPT/HCPCS: 36415; 71045; 80053; 83735; 83880; 84484; 85025; 85610; 85730; 93005; 93041